=== PATIENT | male | born 1985 | race Caucasian/White ===

== ENCOUNTER 2019-05-08 13:33 | Emergency (ER) | payer OTHER ==
[2019-05-08 13:51] VITALS: BP 127/76
[2019-05-08] MEDS ORDERED: CHERRY SYRUP 10 ML UDC PO ONE (14:33)
[2019-05-08] MEDS ORDERED: DEXAMETHASONE 10 MG/ML VIAL PO STA (14:33)
--- NOTE | 2019-05-08 14:46 | ED Physician Documentation ---
History of Present Illness - Stated complaint Stated Complaint: SORE THROAT/RT EAR PX - Chief complaint Chief Complaint: Heent - History obtained from History obtained from: Patient - History of Present Illness Timing: How many days ago (2) Pain level max: 6 Pain level now: 5 - Additonal information Additional information: 33-year-old male with a sore throat for the past 2 days. Also has had right ear pain. Subjective fevers. Some chills. No nausea or vomiting. No cough. No rhinorrhea or congestion. Worse with swallowing. Better with rest. Review of Systems Ears: denies: Ear pain Nose: denies: Rhinorrhea / runny nose, Congestion Throat: denies: Sore throat Cardiac: denies: Chest pain / pressure GI: denies: Nausea, Vomiting, Diarrhea Skin: denies: Rash Musculoskeletal: denies: Neck pain, Back pain Neurologic: denies: Headache PD PAST MEDICAL HISTORY - Past Medical History Past Medical History: No - Present Medications Home Medications: Ambulatory Orders Medication Instructions Recorded Confirmed Ibuprofen [Motrin] 800 mg PO Q8H PRN #30 tablet 05/08/19 Penicillin V Potassium 500 mg PO Q6HR #40 tablet 05/08/19 - Allergies Allergies/Adverse Reactions: Allergies Allergy/AdvReac Type Severity Reaction Status Date / Time No Known Drug Allergies Allergy Verified 05/08/19 13:51 - Social History Does the pt smoke?: No Smoking Status: Never smoker PD ED PE NORMAL - Vitals Vital signs reviewed: Yes - General General: Alert and oriented X 3, No acute distress, Well developed/nourished - HEENT HEENT: PERRL, Ears normal, Moist mucous membranes, Other (Posterior pharyngeal erythema with tonsillar exudates. uvula midline. normal phonation. no trismus.) - Neck Neck: Supple, no meningeal sign - Cardiac Cardiac: RRR, Strong equal pulses - Respiratory Respiratory: No respiratory distress, Clear bilaterally - Abdomen Abdomen: Soft, Non tender, Non distended - Derm Derm: Warm and dry, No rash - Neuro Neuro: Alert and oriented X 3 - Psych Psych: Normal mood, Normal affect Results - Vitals Vitals: Vital Signs - 24 hr 05/08/19 13:48 Temperature 37 C Heart Rate 91 Respiratory 16 Rate Blood Pressure 127/76 O2 Saturation 96 Oxygen O2 Source Room air - Labs Labs: Laboratory Tests 05/08/19 14:02 Group A Strep Rapid Negative PD MEDICAL DECISION MAKING - ED course Complexity details: reviewed results, considered differential, d/w patient ED course: 33-year-old male presents the emergency department with what appears clinically to be strep pharyngitis. Rapid strep is negative. Will place on penicillin. Given dexamethasone. No evidence of peritonsillar or retropharyngeal abscess. Patient is well-appearing, nontoxic. Afebrile. Tolerating secretions without difficulty. Patient counseled regarding signs and symptoms for which I believe and urgent re-evaluation would be necessary. Patient with good understanding of and agreement to plan and is comfortable going home at this time This document was made in part using voice recognition software. While efforts are made to proofread this document, sound alike and grammatical errors may occur. Departure - Departure Disposition: 01 Home, Self Care Clinical Impression: Pharyngitis Qualifiers: Pharyngitis/tonsillitis etiology: unspecified etiology Qualified Code(s): J02.9 - Acute pharyngitis, unspecified Condition: Good Instructions: ED Strep Pharyngitis Poss Follow-Up: your,doctor in 1 week if not better [Other] Prescriptions: Penicillin V Potassium 500 mg PO Q6HR #40 tablet Ibuprofen [Motrin] 800 mg PO Q8H PRN #30 tablet PRN Reason: PAIN &/OR FEVER Comments: Drink plenty of fluids. Return if you worsen. Follow-up with your doctor for further care.
== END 2019-05-08 14:52 | disposition home or self-care (01) ==
LOC: ED 13:33
DX: J02.9 Acute pharyngitis, unspecified (principal)
CPT/HCPCS: 87070; 87430; 99283; 99284; A9270

== ENCOUNTER 2020-07-31 11:58 | Emergency (ER) | payer OTHER ==
--- NOTE | 2020-07-31 12:09 | ED Physician Documentation ---
PD HPI MAJOR BURN - Stated complaint Stated Complaint: BACK PX PD PAST MEDICAL HISTORY - Present Medications Home Medications: Ambulatory Orders Medication Instructions Recorded Confirmed Ibuprofen [Motrin] 800 mg PO Q8H PRN #30 tablet 05/08/19 Penicillin V Potassium 500 mg PO Q6HR #40 tablet 05/08/19 - Allergies Allergies/Adverse Reactions: Allergies Allergy/AdvReac Type Severity Reaction Status Date / Time No Known Drug Allergies Allergy Verified 05/08/19 13:51 - Social History Does the pt smoke?: No Smoking Status: Never smoker Results - Vitals Vitals: Oxygen O2 Source Room air
[2020-07-31] MEDS ORDERED: KETOROLAC 60 MG/2 ML VIAL IM STA (12:52)
--- NOTE | 2020-07-31 12:55 | ED Physician Documentation ---
History of Present Illness - Stated complaint Stated Complaint: BACK PX - Chief complaint Chief Complaint: Back Pain - History obtained from History obtained from: Patient - Additonal information Additional information: 34-year-old male presents to the emergency department with acute low midline back pain that occurred prior to arrival when he was attempting to lift and move a heavy transmitter for work. He estimates it weighs over 200 pounds. He has similarly had pain like this in the past that has typically abated after few days of rest and NSAID medication. He denies any fevers, history of injection drug use or cancer. He has no saddle anesthesia. He is able to walk though he has a guarded gait. There is no radiation of pain. Review of Systems Constitutional: reports: Reviewed and negative Eyes: reports: Loss of vision Ears: reports: Reviewed and negative Throat: reports: Reviewed and negative Cardiac: reports: Reviewed and negative Respiratory: reports: Reviewed and negative GI: reports: Reviewed and negative : reports: Reviewed and negative Skin: reports: Reviewed and negative Musculoskeletal: reports: Back pain Neurologic: reports: Reviewed and negative PD PAST MEDICAL HISTORY - Present Medications Home Medications: Ambulatory Orders Medication Instructions Recorded Confirmed Ibuprofen [Motrin] 800 mg PO Q8H PRN #30 tablet 05/08/19 Penicillin V Potassium 500 mg PO Q6HR #40 tablet 05/08/19 Ibuprofen [Motrin] 600 mg PO Q6H PRN #30 tab 07/31/20 Methocarbamol [Robaxin-750] 750 mg PO TID PRN #30 tablet 07/31/20 - Allergies Allergies/Adverse Reactions: Allergies Allergy/AdvReac Type Severity Reaction Status Date / Time No Known Drug Allergies Allergy Verified 07/31/20 12:15 - Social History Does the pt smoke?: No Smoking Status: Never smoker PD ED PE EXPANDED - General General: Alert, In Pain - Neck Neck: Supple w/out meningeal sx. No: Stiff neck - Cardiac Cardiac: Regular Rate, Normal pulses, Radial strong equal - Respiratory Respiratory: Clear to ausultation patrizia. No: Distress, Labored - Abdomen Abdomen: Normal Bowel sounds. No: Tender to palpation - Back Back: Soft tissue tenderness, Other (Midline lower lumbar tenderness palpation with associated paraspinous tenderness bilaterally. Reduced forward flexion. Patient has guarded gait. Motor strength 5 of 5 bilateral lower extremities.). No: Straight leg raise + R, Straight leg raise + L, CVA TTP right - Neuro Neuro: Alert and Oriented X 3. No: CNII-XII intact - GCS Eye Opening: Spontaneous Motor: Obeys Commands Verbal: Oriented Total: 15 Results - Vitals Vitals: Vital Signs - 24 hr 07/31/20 12:10 Temperature 36.9 C Heart Rate 88 Respiratory 16 Rate Blood Pressure 141/83 H O2 Saturation 99 Oxygen O2 Source Room air PD MEDICAL DECISION MAKING - ED course Complexity details: reviewed results, considered differential, d/w patient ED course: 34-year-old male here with acute lower midline back pain after attempting to lift and move a heavy transmitter at work. He has no red flags on examination. Patient was given 60 mg of Toradol in the emergency department with mild to moderate relief of pain. He will be discharged with a prescription for ibuprofen and a muscle relaxer. He was advised to follow-up closely with [facility]. Emergent return precautions discussed Departure - Departure Disposition: 01 Home, Self Care Clinical Impression: Low back pain Qualifiers: Chronicity: acute Back pain laterality: midline Sciatica presence: without sciatica Qualified Code(s): M54.5 - Low back pain Condition: Stable Record reviewed to determine appropriate education?: Yes Instructions: ED Low Back Pain Injury Prescriptions: Ibuprofen [Motrin] 600 mg PO Q6H PRN #30 tab PRN Reason: Pain Methocarbamol [Robaxin-750] 750 mg PO TID PRN #30 tablet PRN Reason: Spasms Comments: [place] I think that you have pulled the muscles in your low back. It is also possible that you have herniated the disc. Please take the ibuprofen with food 3 times a day. I have also prescribed a muscle relaxer to be used 2-3 times a day as needed. Please be careful it can be sedating. I would like you to follow-up with [facility] tomorrow. If at any point you are having worsening back pain, pain radiates to your legs, you cannot control your bowel or bladder functions or you have numbness in the leg then please return for a second evaluation
[2020-07-31 13:38] VITALS: BP 119/70
== END 2020-07-31 14:00 | disposition home or self-care (01) ==
LOC: ED 11:58
DX: M54.5 Low back pain (principal); X50.0XXA Overexertion from strenuous movement or load, initial encounter; Y93.89 Activity, other specified; Y99.0 Civilian activity done for income or pay
CPT/HCPCS: 96372; 99283; 99284

== ENCOUNTER 2022-02-25 15:40 | Outpatient (CLI) | payer OTHER ==
--- NOTE | 2022-02-25 16:23 | SLEEP CARE CONSULTATION ---
Information from patient questionnaire entered by Corie Russell MA. I have reviewed and concur with the information entered by Corie Russell MA. This document represents the service I personally performed and the decisions made by me, Alice Deluca ARNP. History of Present Illness Service Date and Time: 02/25/2022 1540 Reason for Visit: New patient (onset 02/02/2019,) Chief Complaint: reports: Unrefreshed sleep, Snoring, Excessive daytime sleepiness, Observed pauses in breathing Date of Onset: 3 YEARS Usual bedtime: 9 PM Time it takes to fall asleep: 30 MINUTES Snores at night: Yes Observed to quit breathing while asleep: Yes Sleeps alone due to snoring: No Number of times waking at night: 1 X Reasons for waking at night: reports: Gasping for air (occasionally), Other (unknown reasons) Toss, Turn, or Twitch while sleeping: Yes Recalls having dreams: Yes Usually gets out of bed at: 0500; weekends 0800 Feels refreshed in the morning: No Morning headache: No Sleepy or fatigued during the day: Yes Ever fallen asleep while driving: No Takes day naps: Yes (most days gets about 1 hour nap, sometimes more) Dreams during day naps: Yes Prior sleep studies: No Additional HPI information: I had the pleasure of seeing AMPARO GARCIA today regarding the possibility of him having a sleep disorder. His current complaints are snoring, observed pauses in breathing and excessive daytime sleepiness. He states that his has been pushing him because of his snoring and pauses in breathing in his sleep. He finally asked his doctor about it. He states he has not been sleeping well in a long time. His brother has sleep apnea and uses a CPAP. He states he has 3 alarms to get himself up in the morning because he does not feel refreshed in the morning. He wakes up "in a fog" and can take up to 30 minutes to feel awake ("cognitive"). 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 Patient is and lives in . Have you smoked in the past 12 months: Yes Cigarettes per day (20/pack): 20 Years of smokin Quit date: TRYING Smoking Pack Years: 18.0 Alcohol use: Yes Alcohol amount and frequency: 1-2 X WEEKLY Caffeine use: Yes Caffeine amount and frequency: 1-2 cans X DAILY Family History Family history of sleep disordered breathing: Yes Family Hx Sleep Apnea: Father: Snoring, Sleep apnea - Untreated, Sibling: Sleep apnea - Treated Allergies and Home Medications Drug allergies reviewed: Yes (NKDA) Home medication list reviewed: Yes (no daily medications ) Allergy and home medication list: Allergies No Known Drug Allergies Allergy (Verified 07/31/20 12:15) Review of Systems Weight gain over past 5 years: 10-15 lb over last 2 years Cardiovascular: denies: high blood pressure Respiratory: reports: shortness of breath Gastrointestinal: reports: heartburn Neurological: denies: headaches, head trauma Psychiatric: denies: anxiety, depression, mood disorder Ear/Nose/Throat: reports: wisdom teeth removed. denies: injury to nose, tonsillectomy Endocrine: denies: thyroid disease Immunologic: reports: allergies to food or environment (light to animal dander) Physical Exam Vital signs obtained and entered by: BRYCE HERNANDEZ Blood Pressure: 140/96 (PULSE 95, RESP 18, RIGHT) Cuff size: wrist Heart Rate: 64 O2 Saturation: 97 (N95) Height: 5 ft 7 in Weight: 209 lb (CLOTHES) Weight change since last visit: QUITING SMOKING, DIET CUT SUGAR CAFF, EAT LESS FAST FOOD, Body Mass Index: 32.7 BMI Classification: Obese Neck circumference: 15 (INCHES) Mouth and throat: narrow oropharynx Soft palate: long Hard palate: arched Uvula: normal Uvula visualization: 25% Mallampati Class III Tongue: enlarged in size with teeth schwab on lateral edges Tonsils: small Neck: normal w/o lymphadenopathy or thyromegaly Heart: regular rate and rhythm Lungs: clear bilaterally Impression and Plan 1. Suspected Obstructive Sleep Apnea-Hypopnea Syndrome, as suggested by a history of loud and irregular snoring, observed cessation of breath while asleep, gasping or choking in sleep, unrefreshed sleep, cognitive impairment, and excessive daytime sleepiness. Narrow oropharynx and obesity are common predisposing factors for obstructive sleep apnea-hypopnea syndrome. I recommend proceeding to polysomnography to confirm the diagnosis and to assess severity. If the patient has significant sleep disordered breathing, a manual CPAP titration study will also be performed to find the optimal treatment pressure. I informed the patient of what the sleep studies involve and after some discussi on, obtained agreement to proceed. The pathophysiology of obstructive sleep apnea-hypopnea syndrome was discussed with the patient and health risks of cardiovascular and cerebrovascular disease if not treated. Risks of drowsy driving discussed in detail and patient advised to avoid long distance driving and to gut puller at the first sign of drowsiness. Patient agreed to plan. * Schedule polysomnography * Avoid long distance driving or driving when feeling sleepy. * Avoid alcohol, sedative and muscle relaxant around bedtime. * Attempt to lose weight. * Review instructions provided by trained office staff on how to prepare for the sleep study. * Return for follow-up after sleep study completed. Counseling Topics: Weight loss health impact Visit Type: In Office Time Spent with Patient (minutes): 31 Provider Statement: I spent 100% of the Face to Face Visit with the patient with greater than 50% spent counseling the patient and coordination of care.
[2022-02-25 16:28] VITALS: BP 140/96
== END 2022-02-25 15:41 | disposition home or self-care (01) ==
LOC: SC 15:40
PROVIDERS: ATTEND Nurse Practitioner Family
DX: R06.83 Snoring (principal); R06.81 Apnea, not elsewhere classified; G47.8 Other sleep disorders; R41.89 Other symptoms and signs involving cognitive functions and awareness; G47.10 Hypersomnia, unspecified; F17.200 Nicotine dependence, unspecified, uncomplicated; E66.9 Obesity, unspecified; Z68.32 Body mass index [BMI] 32.0-32.9, adult
CPT/HCPCS: 99203; 99212

== ENCOUNTER 2022-04-09 12:46 | Outpatient (CLI) | payer OTHER ==
[2022-04-09 13:30] VITALS: BP 129/93
--- NOTE | 2022-04-09 13:30 | SLEEP CARE CONSULTATION ---
Information from patient questionnaire entered by Corie Russell MA. I have reviewed and concur with the information entered by Corie Russell MA. This document represents the service I personally performed and the decisions made by Sandrine alcazar Caren J, ARNP. History of Present Illness Service Date and Time: 04/09/2022 1246 Initial [place] Sleepiness Scale score: 15 (02/2022) Current [place] Sleepiness Scale score: 12 (04/09/22) Additional HPI information: AMPARO GARCIA returns for follow up and results of the recently performed polysomnography. The patient was informed of the following findings: No significant sleep disordered breathing with an average AHI of 4.4 and ramona oxygen saturation of 75%. I explained the pathophysiology behind obstructive sleep apnea. Patient does not have sleep apnea and was advised how weight gain could increase the risk of developing sleep apnea in the future. I strongly encouraged the patient to lose weight. Patient has moderate snoring. Snoring can be reduced by weight loss. Weight loss is best achieved with diet consult. Patient instructed to contact PCP for referral. Snoring can also be treated with an oral appliance from a dentist. Advised to check insurance coverage. In addition, an ENT evaluation can be do to see if other treatment is indicated. Patient counseled not drink alcohol less than 4 hours before bedtime as it can increase snoring and apnea. Patient was cautioned about risks of drowsy driving until sleepiness symptoms resolve. Sleep Study - Results Type of Sleep Study: Polysomnography (F/U POLY) Prior sleep studies: No Polysomnography/Home Sleep Study results: IMPRESSION: The quality of the study is good. The patient had normal sleep efficiency. The sleep architecture was normal as well. Respiratory monitoring showed no significant sleep disordered breathing (AHI = 4.4). There was minimal hypoxia (ramona oxygen saturation of 75% but only 1% to the total sleep time was spent with oxygen saturation below 90%). The respiratory events occurred mainly during REM sleep. The patient only slept supine during this study (supine AHI = 4.4; non-supine = 0.00). Snore was light to moderate in intensity. There was no significant periodic leg movement of sleep. Cardiac rhythm was normal sinus rhythm without significant arrhythmia. No abnormal behavior (parasomnia) observed during the night. Allergies and Home Medications Known drug allergies: No Home medication list reviewed: Yes (no changes) Allergy and home medication list: Allergies No Known Drug Allergies Allergy (Verified 07/31/20 12:15) Review of Systems Review of systems same as previous: Yes (no changes) Physical Exam Vital signs obtained and entered by: BRYCE HERNANDEZ Blood Pressure: 129/93 (RESP 18, PULSE 81, RIGHT,) Cuff size: wrist Heart Rate: 78 O2 Saturation: 98 (N95) Height: 5 ft 7 in Weight: 194 lb 8 oz (UNIFORM N BOOT) Body Mass Index: 30.4 BMI Classification: Obese Impression and Plan 1. Suspected Obstructive Sleep Apnea-Hypopnea Syndrome, as suggested by a history of loud and irregular snoring, observed cessation of breath while asleep, gasping or choking in sleep, unrefreshed sleep, cognitive impairment, and excessive daytime sleepiness. Patient completed a polysomnograph with no significant sleep disordered breathing noted. His supine AHI was 4.4. Patient did not sleep on his sides and states he normally would sleep on his sides at home. He states he does not feel like he really slept the night of the study, that he was just laying there and aware of what was going on. He states it was very uncomfortable. I would like to get a another sleep study, HST, and have him sleep as he normally would to see if he does have sleep apnea when sleeping nonsupine. I recommend proceeding to polysomnography to confirm the diagnosis and to assess severity. I obtained agreement to proceed. The pathophysiology of obstructive sleep apnea-hypopnea syndrome was discussed with the patient and health risks of cardiovascular and cerebrovascular disease if not treated. Risks of drowsy driving discussed in detail and patient advised to avoid long distance driving and to lumber puller at the first sign of drowsiness. Patient agreed to plan. * Schedule HST * Avoid long distance driving or driving when feeling sleepy. * Avoid alcohol, sedative and muscle relaxant around bedtime. * Attempt to lose weight. * Review instructions provided by trained office staff on how to prepare for the sleep study. * Return for follow-up after sleep study completed. Counseling Topics: Weight loss health impact Visit Type: In Office Time Spent with Patient (minutes): 20 Provider Statement: I spent 100% of the Face to Face Visit with the patient with greater than 50% spent counseling the patient and coordination of care.
== END 2022-04-09 12:47 | disposition home or self-care (01) ==
LOC: SC 12:46
PROVIDERS: ATTEND Nurse Practitioner Family
DX: R06.83 Snoring (principal); G47.8 Other sleep disorders; R06.81 Apnea, not elsewhere classified; G47.10 Hypersomnia, unspecified; E66.9 Obesity, unspecified; Z68.30 Body mass index [BMI] 30.0-30.9, adult
CPT/HCPCS: 99212; 99213

== ENCOUNTER 2022-04-21 14:51 | Outpatient (CLI) | payer OTHER | END 2022-04-21 14:52 | disposition home or self-care (01) | LOC: SC 14:51 | PROVIDERS: ATTEND Nurse Practitioner Family | DX: R09.02 Hypoxemia (principal); G47.8 Other sleep disorders; G47.10 Hypersomnia, unspecified | CPT/HCPCS: 95806 ==

== ENCOUNTER 2022-05-07 14:19 | Outpatient (CLI) | payer OTHER ==
[2022-05-07 15:00] VITALS: BP 141/78
--- NOTE | 2022-05-07 15:00 | SLEEP CARE CONSULTATION ---
Information from patient questionnaire entered by Corie Russell MA. I have reviewed and concur with the information entered by Corie Russell MA. This document represents the service I personally performed and the decisions made by , Alice Deluca ARNP. History of Present Illness Service Date and Time: 05/07/2022 1419 Initial [place] Sleepiness Scale score: 15 (02/2022) Current [place] Sleepiness Scale score: 12 (05/07/2022) Additional HPI information: AMPARO GARCIA returns for follow up and results of the recently performed home sleep study. The patient was informed of the following findings: No significant sleep disordered breathing with an average AHI of 3.7 and ramona oxygen saturation of 86%. Patient had an elevated supine AHI of 5.7. I explained the pathophysiology behind obstructive sleep apnea. Patient does not have sleep apnea and was advised how weight gain could increase the risk of developing sleep apnea in the future. I strongly encouraged the patient to lose weight. Patient does not have significant sleep disordered breathing but has elevated AHI in supine position so advised positional therapy. Methods to achieve positional management therapy were discussed; such as, positioning with pillows, wearing a T-shirt with tennis balls sewn into the back, Rematee shirt, Zzomba belt and Slumberbump belt. Patient has moderate snoring. Snoring can be reduced by weight loss. Weight loss is best achieved with diet consult. Patient instructed to contact PCP for referral. Snoring can also be treated with an oral appliance from a dentist. Advised to check insurance coverage. In addition, an ENT evaluation can be do to see if other treatment is indicated. Patient counseled not drink alcohol less than 4 hours before bedtime as it can increase snoring and apnea. Patient was cautioned about risks of drowsy driving until sleepiness symptoms resolve. Patient denies drowsy driving. Sleep Study - Results Type of Sleep Study: Home sleep study (F/U HST, 04/22/2022 [facility] [place], [place] Prior sleep studies: No Polysomnography/Home Sleep Study results: Physician Impression: The quality of the study is good. The length of the study is adequate (> 240 minutes). Please also see the tabulated and graphic data. 1. No significant sleep disordered breathing, with an AHI of 3.7/hr and ramona SaO2 of 86%. During the study, the patient had 2 apneas (2 obstructive, 0 central, 0 mixed) and 25 hypopneas. The longest episode lasted 107.0 seconds. The few respiratory events occurred almost exclusively during supine sleep (supine AHI was 5.7 and non-supine, 0.68). 2. Hypoxemia (ICD-10 R09.02), mild, with the lowest oxygen saturation of 86 % and 3.6 minutes with SaO2 under 90%. Baseline oxygen saturation was normal (Average oxygen saturation was 92%). Allergies and Home Medications Home medication list reviewed: Yes (no changes) Allergy and home medication list: Allergies No Known Drug Allergies Allergy (Verified 07/31/20 12:15) Review of Systems Review of systems same as previous: Yes (no changes) Physical Exam Vital signs obtained and entered by: BRYCE HERNANDEZ Blood Pressure: 141/78 (RIGHT, RESP 20, PULSE 89) Heart Rate: 91 O2 Saturation: 97 (N95) Height: 5 ft 7 in Weight: 206 lb (CLOTHES) Body Mass Index: 32.2 BMI Classification: Obese Impression and Plan Snoring but no significant sleep disordered breathing. Patient advised that often weight loss will reduce snoring as well as apnea risk. An oral appliance can also be used for snoring. This would require a dental consultation. Patient cautioned not to use other online appliances as can cause bite issues. A list of accredited dentists in [facility] and one local dentist who makes oral appliances is available in office. Patient is advised to check if insurance will cover. An ENT consult can also be helpful to determine if any other treatment is an option. * Attempt to lose weight * Avoid alcohol consumption near bedtime * The patient is cautioned about driving * Return as needed for follow up. Counseling Topics: Weight loss health impact Visit Type: In Office Time Spent with Patient (minutes): 11 Provider Statement: I spent 100% of the Face to Face Visit with the patient with greater than 50% spent counseling the patient and coordination of care.
== END 2022-05-07 14:20 | disposition home or self-care (01) ==
LOC: SC 14:19
PROVIDERS: ATTEND Nurse Practitioner Family
DX: R06.83 Snoring (principal); E66.9 Obesity, unspecified; Z68.32 Body mass index [BMI] 32.0-32.9, adult
CPT/HCPCS: 99212